=== PATIENT | female | born 1950 | race Caucasian/White ===

== ENCOUNTER 2016-06-02 07:38 | Day surgery (SDC) ==
[2016-02-11 10:58] VITALS: BMI 27.6
[2016-06-02] MEDS ORDERED: LIDOCAINE 1% 20 ML MDV ONE (08:15)
[2016-06-02] MEDS ORDERED: LIDOCAINE 1% 20 ML MDV ID ONE (08:15)
[2016-06-02] MEDS ORDERED: VERSED ONE (09:35)
[2016-06-02] MEDS ORDERED: DIPRIVAN 20 ML VIAL IVP ONE (09:35)
[2016-06-02] MEDS ORDERED: SUBLIMAZE ONE (09:35)
[2016-06-02] MEDS ORDERED: LIDOCAINE 1%-EPI 1:100,000 10 ML (SURGERY) INJ ONE (09:46)
[2016-06-02] MEDS ORDERED: DEMEROL 25 MG/ML SYRINGE IV ONE (11:09)
[2016-06-02] MEDS ORDERED: ZOFRAN 4 MG/2 ML IVP ONE (12:35)
[2016-06-02 13:26] VITALS: BP 174/73; TEMP 97.1
--- NOTE | 2016-06-16 14:53 | OP ---
PREOPERATIVE DIAGNOSIS: RIGHT SUBMANDIBULAR GLAND STONE POSTOPERATIVE DIAGNOSIS: RIGHT SUBMANDIBULAR GLAND STONE OPERATION: EXCISION OF SUBMANDIBULAR MASS PROCEDURE: The patient was taken to surgery, placed on the table and general anesthesia was administered. 1% Xylocaine with 100,000 Epinephrine injected on the right floor of the mouth. 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 Granulation tissue was removed from the floor of the mouth. Incision site was then closed using 3-0 Chromic suture. Fine needle aspirate was obtained of the right submandibular gland area and sent off for cytologic evaluation. The patient was then extubated and returned to the recovery room in satisfactory condition. The patient was taken to the Recovery Room in satisfactory condition. RODY
== END 2016-06-02 13:06 | disposition home or self-care (01) ==
LOC: SURG 07:38
PROVIDERS: ATTEND Otolaryngology
DX: K11.5 Sialolithiasis (principal); K11.23 Chronic sialoadenitis; D11.7 Benign neoplasm of other major salivary glands; Z87.891 Personal history of nicotine dependence
CPT/HCPCS: 10021; 42330

== ENCOUNTER 2017-04-26 08:39 | Day surgery (SDC) ==
[2016-02-11 10:58] VITALS: BMI 27.6
[2017-04-26] MEDS ORDERED: VERSED ONE (11:26)
[2017-04-26] MEDS ORDERED: DIPRIVAN 20 ML VIAL IVP ONE (11:26)
[2017-04-26] MEDS ORDERED: LIDOCAINE 1% 20 ML MDV ID STA (15:11)
[2017-04-26 15:18] VITALS: BP 187/82; TEMP 98.2
--- NOTE | 2017-04-27 09:14 | OP ---
INDICATIONS FOR PROCEDURE: 66 year old female presents for colonoscopy. She has a history of adenomatous polyps with her last colonoscopy 5 years ago. MEDICATIONS: SEE ANESTHESIA NOTES. PROCEDURE: COLONOSCOPY. REPORT: The risks, benefits, alternatives and limitations were discussed in detail with the patient. Informed consent was obtained. After adequate sedation was achieved, a digital rectal exam revealed good tone, no masses. The colonoscope was introduced into the rectum and advanced under direct visual guidance to the cecum. The cecum was identified by the appendiceal orifice and IC valve. I then slowly the scope in circumferential manner and examined the mucosa quite carefully. I looked on the proximal and distal sides of folds and flexures as best as possible. I was able to retroflex the scope in the right colon and the left colon to increase visualization. I noted in the right colon and left colon a few small mouth diverticuli scattered throughout. No other abnormalities were noted including on retroflex view of the anal canal. The prep was good and the withdraw time was 7 minutes and 35 seconds. The patient tolerated the procedure with stable vital signs and pulse oximetry throughout. IMPRESSION: 1. Mild scattered diverticulosis throughout the colon RECOMMENDATIONS: 1. High fiber diet 2. Office visit as needed 3. Colonoscopy examination again in 5 years or sooner if there are any signs or symptoms to indicate otherwise. CC: Dr. Ganga FINE
== END 2017-04-26 12:40 | disposition home or self-care (01) ==
LOC: SURG 08:39
PROVIDERS: ATTEND Internal Medicine Gastroenterology
DX: Z09 Encounter for follow-up examination after completed treatment for conditions other than malignant neoplasm (principal); Z86.010 Personal history of colon polyps; K57.30 Diverticulosis of large intestine without perforation or abscess without bleeding

== ENCOUNTER 2017-12-12 09:30 | Outpatient (CLI) ==
[2016-02-11 10:58] VITALS: BMI 27.6
--- NOTE | 2017-12-14 11:04 | MAMMO ---
EXAM: Bilateral digital screening mammogram (2-D and 3-D) History: Screening Comparison: Bilateral mammogram 08/08/2013 Findings: MLO and CC views of bilateral breasts demonstrate scattered fibroglandular breast parenchy ma. CAD was reviewed by the radiologist. Tomosynthesis was performed. Stable benign bilateral [address] calcifications. A cluster of nodular densities within the upper-outer quadrant of the left breast . No suspicious microcalcifications. Impression: Indeterminate cluster of nodular densities within the upper-outer quadrant of the left b reast. Recommend further evaluation with tomosynthesis spot compression views. BIRADS 0
== END 2017-12-12 09:31 | disposition home or self-care (01) ==
LOC: RAD 09:30
PROVIDERS: ATTEND Internal Medicine
DX: Z12.31 Encounter for screening mammogram for malignant neoplasm of breast (principal)
CPT/HCPCS: 77067

== ENCOUNTER 2017-12-23 08:28 | Outpatient (CLI) ==
[2016-02-11 10:58] VITALS: BMI 27.6
--- NOTE | 2017-12-23 09:36 | US ---
EXAM: Left breast ultrasound. History: Left breast nodules. Comparison: Left diagnostic mammogram 12/23/2017 Technique: Multiple sonographic images through the left breast were obtained. Color duplex Doppler was used to interrogate vascular flow. Findings: No masses, cysts or fluid collections identified. Impression: Although no sonographic abnormalities are identified, recommend 6-month follow-up left d iagnostic mammogram to document stability of the probable benign cluster of nodular densities in the upper-outer quadrant of the left breast. BIRADS 3
--- NOTE | 2017-12-23 10:13 | MAMMO ---
EXAM: Left digital diagnostic mammogram (2-D and 3-D) History: Left breast mass. Comparison: Bilateral mammogram 12/12/2017 Findings: Left breast density is scattered. Additional views of the left breast with tomosynthesis confirmed the cluster of nodular densities within the upper-outer quadrant of the left breast. There are no suspicious microcalcifications. Impression: Indeterminate cluster of nodular densities within the upper-outer quadrant of the left b reast. Recommend further evaluation with ultrasound. BIRADS 0
== END 2017-12-23 08:29 | disposition home or self-care (01) ==
LOC: RAD 08:28
PROVIDERS: ATTEND Internal Medicine
DX: R92.8 Other abnormal and inconclusive findings on diagnostic imaging of breast (principal)

== ENCOUNTER 2018-04-03 06:25 | Day surgery (SDC) ==
[2016-02-11 10:58] VITALS: BMI 27.6
[2018-04-03] MEDS: TETRACAINE 0.5% OPTH SOL OP STA ×5 (07:00→08:34)
[2018-04-03] MEDS: OCUFEN 0.03% OPTH SOL OP STA ×3 (07:00→07:30)
[2018-04-03 07:04] VITALS: TEMP 98.6
[2018-04-03] MEDS: CYCLOGYL 2% OPTH OP PRN ×2 (07:05→07:10)
[2018-04-03] MEDS: AK-DILATE 10% OPTH SOL OP PRN ×2 (07:05→07:10)
[2018-04-03] MEDS ORDERED: TIMOPTIC 0.5% OPTH OP PRN (07:06)
[2018-04-03] MEDS ORDERED: OCUFLOX 0.3% OPTH SOL OP PRN (07:06)
[2018-04-03] MEDS ORDERED: BSS WITH EPINEPHRINE OP ONE (07:06)
[2018-04-03] MEDS ORDERED: CYCLOGYL 2% OPTH OP PRN (07:06)
[2018-04-03] MEDS ORDERED: PRED FORTE 1% OP PRN (07:06)
[2018-04-03] MEDS ORDERED: ISOPTO CARPINE OP PRN (07:06)
[2018-04-03] MEDS ORDERED: ALBUTEROL 0.083% NEB NEB STA (07:06)
[2018-04-03] MEDS ORDERED: AK-DILATE 10% OPTH SOL OP PRN (07:06)
[2018-04-03] MEDS ORDERED: SOLU-CORTEF 250 MG INTRAOCULA PRN (07:06)
[2018-04-03] MEDS ORDERED: BETADINE OPTH PREP OP ONE (07:06)
[2018-04-03] MEDS ORDERED: DIAMOX PO STA ×2 (07:06→13:35)
[2018-04-03] MEDS ORDERED: LIDOCAINE HCL 1% SDV INJ PRN ×2 (07:06→13:35)
[2018-04-03] MEDS ORDERED: VERSED ONE (08:17)
[2018-04-03] MEDS ORDERED: DIAMOX ONE (09:20)
[2018-04-03 13:42] VITALS: BP 132/79
--- NOTE | 2018-04-04 13:55 | OP ---
PREOPERATIVE DIAGNOSIS: ADVANCED NUCLEAR CATARACT RIGHT EYE. POSTOPERATIVE DIAGNOSIS: SAME. OPERATION PHACOEMULSIFICATION ASPIRATION OF CATARACT RIGHT EYE. PLACEMENT OF POSTERIOR CHAMBER LENS. PHACO TIME 1:07.10 SECONDS AT 9.0% POWER. LENS MODEL TECEDWINA [id number]. DIOPTER +26.0D. TECHNIQUE: CLEAR CORNEA. ANESTHESIA: TOPICAL ANESTHESIA W/ANESTHESIA MONITORING. OPERATIVE REPORT: Topical anesthesia consisting of Tetracaine was applied to the cornea and Xylocaine Methyl Paraben free of MFP was injected intracamerally into the anterior chamber. The patient was then brought into the operating room , prepped and draped in the usual ophthalmic manner. A lid speculum was placed and the operating microscope was used. A paracentesis was made at the 3 o' clock position. A clear corneal incision was made just out to the limbus. The anterior chamber was entered just inside the clear cornea. Viscoelastic was injected into the anterior chamber. A capsulotomy was performed with a bent # 27 gauge needle. Phacoemulsification was then performed in the posterior chamber. After completion of the phacoemulsification, residual cortical material was aspirated with the irrigation-aspiration system. The posterior capsule was polished. Viscoelastic was injected into the anterior and posterior chambers to inflate the capsular bag. Lens were placed via an Unfolder system and stabilized in the bag. Viscoelastic was removed from the anterior chamber. The wound was checked for any leakage. The four sponges were removed from the fornix. Topical antibiotic steroid and nonsteroidal drops were also applied to the cornea. A Reyes shield was applied. The patient left the operating room in good condition without any complications. INTRAOPERATIVE MEDICATIONS: Xylocaine Methyl Paraben Free MPF MTDD
== END 2018-04-03 09:20 | disposition home or self-care (01) ==
LOC: SURG 06:25
PROVIDERS: ATTEND Ophthalmology
DX: H25.13 Age-related nuclear cataract, bilateral (principal); E11.9 Type 2 diabetes mellitus without complications
CPT/HCPCS: 94640

== ENCOUNTER 2018-05-29 06:11 | Day surgery (SDC) ==
[2016-02-11 10:58] VITALS: BMI 27.6
[2018-05-29] MEDS: OCUFEN 0.03% OPTH SOL OP PRN ×3 (06:45→07:15)
[2018-05-29] MEDS: TETRACAINE 0.5% UNIT-DOSE OP PRN ×4 (06:45→07:39)
[2018-05-29] MEDS: CYCLOGYL 2% OPTH OP PRN ×3 (06:45→06:55)
[2018-05-29] MEDS: AK-DILATE 10% OPTH SOL OP PRN ×3 (06:45→06:55)
[2018-05-29] MEDS ORDERED: BSS WITH EPINEPHRINE OP ONE (06:58)
[2018-05-29] MEDS ORDERED: DIAMOX PO STA (06:58)
[2018-05-29] MEDS ORDERED: LIDOCAINE 1% 20 ML MDV ID STA (06:58)
[2018-05-29] MEDS ORDERED: LIDOCAINE HCL 1% SDV INJ PRN (06:58)
[2018-05-29 07:16] VITALS: TEMP 97.4
[2018-05-29] MEDS ORDERED: OCUFLOX 0.3% OPTH SOL OP PRN (07:49)
[2018-05-29] MEDS ORDERED: PRED FORTE 1% OP PRN (07:49)
[2018-05-29] MEDS ORDERED: TIMOPTIC 0.5% OPTH OP PRN (07:49)
[2018-05-29] MEDS ORDERED: VERSED ONE (08:30)
[2018-05-29] MEDS ORDERED: SUBLIMAZE ONE (08:30)
[2018-05-29] MEDS ORDERED: DIAMOX ONE (08:40)
[2018-05-29] MEDS ORDERED: BETADINE OPTH PREP OP ONE (11:20)
[2018-05-29 11:28] VITALS: BP 125/68
--- NOTE | 2018-05-30 09:53 | OP ---
PREOPERATIVE DIAGNOSIS: ADVANCED SCLEROTIC CATARACT, LEFT EYE. POSTOPERATIVE DIAGNOSIS: SAME. OPERATION PHACOEMULSIFICATION ASPIRATION OF CATARACT LEFT EYE. PLACEMENT OF POSTERIOR CHAMBER LENS. PHACO TIME 55.4 SECONDS AT 7% POWER. LENS MODEL CLAUS [id number]. DIOPTER +25.0D. TECHNIQUE: CLEAR CORNEA. ANESTHESIA: TOPICAL ANESTHESIA W/ANESTHESIA MONITORING. OPERATIVE REPORT: Topical anesthesia consisting of Tetracaine was applied to the cornea and Xylocaine Methyl Paraben free of MFP was injected intracamerally into the anterior chamber. The patient was then brought into the operating room , prepped and draped in the usual ophthalmic manner. A lid speculum was placed and the operating microscope was used. A paracentesis was made at the 3 o' clock position. A clear corneal incision was made just out to the limbus. The anterior chamber was entered just inside the clear cornea. Viscoelastic was injected into the anterior chamber. A capsulotomy was performed with a bent # 27 gauge needle. Phacoemulsification was then performed in the posterior chamber. After completion of the phacoemulsification, residual cortical material was aspirated with the irrigation-aspiration system. The posterior capsule was polished. Viscoelastic was injected into the anterior and posterior chambers to inflate the capsular bag. Lens were placed via an Unfolder system and stabilized in the bag. Viscoelastic was removed from the anterior chamber. The wound was checked for any leakage. The four sponges were removed from the fornix. Topical antibiotic steroid and nonsteroidal drops were also applied to the cornea. A Reyes shield was applied. The patient left the operating room in good condition without any complications. INTRAOPERATIVE MEDICATIONS: Xylocaine Methyl Paraben Free MPF MTDD
== END 2018-05-29 08:45 | disposition home or self-care (01) ==
LOC: SURG 06:11
PROVIDERS: ATTEND Ophthalmology
DX: H25.12 Age-related nuclear cataract, left eye (principal); Z96.1 Presence of intraocular lens
CPT/HCPCS: 82962